=== PATIENT | male | born 1950 | race Caucasian/White ===

== ENCOUNTER 2017-07-16 13:25 | Emergency (ER) | END 2017-07-16 17:10 | disposition left against medical advice (07) ==

== ENCOUNTER 2017-10-22 09:45 | Emergency (ER) | END 2017-10-22 11:43 | disposition home or self-care (01) ==

== ENCOUNTER 2018-02-16 19:58 | Emergency (ER) | END 2018-02-16 22:16 | disposition home or self-care (01) ==